=== PATIENT | male | born 1955 | race Caucasian/White ===

== ENCOUNTER 2021-01-03 17:12 | Emergency (ER) | payer MEDICARE, OTHER ==
[~2021-01-03] VITALS: Ht 165.1 cm; Wt 56.7 kg
[2021-01-03] MEDS ORDERED: NITR.4SL SL (17:52)
== END 2021-01-03 20:40 | disposition home or self-care (01) ==
LOC: ER 17:12
DX: T84.021A Dislocation of internal left hip prosthesis, initial encounter (principal); W10.9XXA Fall (on) (from) unspecified stairs and steps, initial encounter
CPT/HCPCS: 27266; 73501; 73502; 96374-59; 99284-25; J1170; J2704; J7030

== ENCOUNTER → 2021-01-16 | Outpatient (CLI) | payer MEDICARE, OTHER ==
[~2021-01-16] MED LIST: NITR.4SL SL
== END | disposition home or self-care (01) ==
LOC: LAB SHORT 10:30 → LAB 10:30 → LAB FUT 01-05 13:40
PROVIDERS: Family Medicine
DX: I25.10 Atherosclerotic heart disease of native coronary artery without angina pectoris (principal); R25.1 Tremor, unspecified
CPT/HCPCS: 81050; 82525; 82570

== ENCOUNTER 2021-04-23 12:58 | Emergency (ER) | payer MEDICARE, OTHER ==
[~2021-04-23] VITALS: Ht 170.2 cm; Wt 68.0 kg
== END 2021-04-23 16:53 | disposition home or self-care (01) ==
LOC: ER 12:58
DX: T84.021A Dislocation of internal left hip prosthesis, initial encounter (principal); F17.210 Nicotine dependence, cigarettes, uncomplicated; Z96.642 Presence of left artificial hip joint; Y83.1 Surgical operation with implant of artificial internal device as the cause of abnormal reaction of the patient, or of later complication, without mention of misadventure at the time of the procedure
CPT/HCPCS: 27265; 36415; 72170; 73502; 99152; 99284-25; J2704; J3010; J7030

== ENCOUNTER 2023-03-11 09:19 | Emergency (ER) | payer MEDICARE, OTHER ==
[~2023-03-11] VITALS: Ht 170.2 cm; Wt 70.8 kg
[~2023-03-11 09:19] MED LIST changes: +Inderal40 MG PO; +Primidone50 MG PO; +Ventolin/Prove6.7 GM
[2023-03-11 09:49] LABS: BASOPHILS ABSOLUTE AUTO 0.03 K/mm3 (0.00-0.23); BASOPHILS PERCENT AUTO 0 % (0-2); EOSINOPHILS ABSOLUTE AUTO 0.04 K/mm3 (0.00-0.68); EOSINOPHILS PERCENT AUTO 0 % (0-6); Hematocrit 38.4 % (37.0-53.0); IMMATURE GRAN ABSOLUTE AUTO 0.04 K/mm3 (0.00-0.10); IMMATURE GRAN PERCENT AUTO 0 % (0-1); LYMPHOCYTES ABSOLUTE AUTO 0.42 K/mm3 (0.84-5.20); LYMPHOCYTES PERCENT AUTO 5 % (21-46); MONOCYTES ABSOLUTE AUTO 0.23 K/mm3 (0.16-1.47); MONOCYTES PERCENT AUTO 3 % (4-13); Mean Corpuscular HGB 33.2 pg (26.0-34.0); Mean Corpuscular HGB Conc 33.9 g/dL (31.5-36.5); Mean Corpuscular Volume 98 fL (80-100); Mean Platelet Volume 10.9 fL (9.1-12.4); NEUTROPHILS ABSOLUTE AUTO 8.17 K/mm3 (1.96-9.15); NEUTROPHILS PERCENT AUTO 92 % (41-73); Platelet Count 216 K/mm3 (150-400); RDW Coefficient Variation 12.4 % (11.7-14.2); RDW Standard Deviation 44.6 fL (35.1-46.3); Red Blood Cell Count 3.92 M/mm3 (4.30-5.90); White Blood Cell Count 8.93 K/mm3 (4.00-11.30)
[2023-03-11 10:04] LABS: Bun/Creatinine Ratio 23.3 (12.0-20.0); Calcium, Blood 8.7 mg/dL (8.5-10.1); Creatinine, Blood 0.9 mg/dL (0.60-1.20); Potassium, Blood 3.6 mmol/L (3.5-5.5)
[2023-03-11] MEDS ORDERED: Ventolin/Prove6.7 GM INH (13:14)
[2023-03-11 13:43] VITALS: BP 113/78
== END 2023-03-11 13:48 | disposition home or self-care (01) ==
LOC: ER 09:19
PROVIDERS: Student in an Organized Health Care Education/Training Program
DX: J44.1 Chronic obstructive pulmonary disease with (acute) exacerbation (principal); Z88.6 Allergy status to analgesic agent; Z88.8 Allergy status to other drugs, medicaments and biological substances; Z79.899 Other long term (current) drug therapy; I10 Essential (primary) hypertension; F17.210 Nicotine dependence, cigarettes, uncomplicated
CPT/HCPCS: 71046; 80048; 84484; 85025; 93005; 93010; 94640; 94664; 96374; 96375; 99285-25; A9270; J1100; J1885

== ENCOUNTER → 2023-03-14 | Outpatient (CLI) | payer MEDICARE, OTHER ==
[~2023-03-14] MED LIST changes: +Ventolin/Prove6.7 GM INH
== END ==
LOC: LAB 14:21 → LAB SHORT 14:21
DX: N39.0 Urinary tract infection, site not specified (principal)
CPT/HCPCS: 87086

== ENCOUNTER 2024-12-25 07:33 | Emergency (ER) | payer MEDICARE, OTHER ==
[~2024-12-25] VITALS: Ht 170.2 cm; Wt 60.8 kg
[~2024-12-25 07:33] MED LIST changes: +ANORO ELLIPTA1 EAC1 INH; +ATOR40TA PO; +TAMSULOSIN HCL0.4 M1 PO
[2024-12-25] MEDS ORDERED: HYDROmorphone HCl/Pf 1MG SYR IV ONE (07:50)
[2024-12-25] MEDS ORDERED: FentaNYL Citrate 50 MCG/ML 2 ML Injection IV ONE (09:40)
[2024-12-25] MEDS ORDERED: Propofol 10mg/ml 20 ml Vial (Procedural) IV SCH (09:55)
[2024-12-25 11:30] VITALS: BP 142/72
== END 2024-12-25 11:51 | disposition home or self-care (01) ==
LOC: ER 07:33
DX: T84.021A Dislocation of internal left hip prosthesis, initial encounter (principal); Z96.643 Presence of artificial hip joint, bilateral; I10 Essential (primary) hypertension; J44.9 Chronic obstructive pulmonary disease, unspecified; F17.210 Nicotine dependence, cigarettes, uncomplicated; Z79.899 Other long term (current) drug therapy; Z88.8 Allergy status to other drugs, medicaments and biological substances; X50.9XXA Other and unspecified overexertion or strenuous movements or postures, initial encounter
CPT/HCPCS: 27265; 73502; 96374-59; 96375-59; 99284-25; A9270; J1171; J2704; J3010; J7120

== ENCOUNTER 2025-02-05 13:06 | Emergency (ER) | payer MEDICARE, OTHER ==
[~2025-02-05] VITALS: Ht 170.2 cm; Wt 59.0 kg
[2025-02-05] MEDS ORDERED: HYDROmorphone HCl/Pf 1MG SYR IV ONE (13:45)
[2025-02-05 15:36] VITALS: BP 164/96
[2025-02-05] MEDS ORDERED: NS 1,000 ML IV ONE (15:57)
[2025-02-05] MEDS ORDERED: NS 1,000 ML IV SCH (16:25)
== END 2025-02-05 18:05 | disposition home or self-care (01) ==
LOC: ER 13:06
DX: S73.015A Posterior dislocation of left hip, initial encounter (principal); T84.021A Dislocation of internal left hip prosthesis, initial encounter; I10 Essential (primary) hypertension; F17.210 Nicotine dependence, cigarettes, uncomplicated; Z86.73 Personal history of transient ischemic attack (TIA), and cerebral infarction without residual deficits; X58.XXXA Exposure to other specified factors, initial encounter; Z88.6 Allergy status to analgesic agent; Z88.8 Allergy status to other drugs, medicaments and biological substances; Z79.899 Other long term (current) drug therapy
CPT/HCPCS: 27265; 73502; 90471; 90715; 96374-59; 99284-25; J1171; J2704; J7030